=== PATIENT | female | born 1985 ===

== ENCOUNTER 2018-01-08 01:22 | Emergency (ER) | payer SELFPAY ==
[2018-01-08] MEDS ORDERED: Acetaminophen 500 MG TAB ONE ×2 (01:49→01:56)
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
== END 2018-01-08 03:30 | disposition home or self-care (01) ==
LOC: ERS 01:22
DX: Z02.89 Encounter for other administrative examinations (principal); F17.210 Nicotine dependence, cigarettes, uncomplicated
CPT/HCPCS: 70450; 72125